=== PATIENT | male | born 1945 | race Caucasian/White ===

== ENCOUNTER 2017-07-17 09:07 | Outpatient (CLI) | payer OTHER | END 2017-07-17 09:13 | disposition home or self-care (01) | LOC: RAD 09:07 | DX: I10 Essential (primary) hypertension (principal) ==

== ENCOUNTER 2017-07-18 06:39 | Outpatient (CLI) | payer OTHER | END 2017-07-18 06:57 | disposition home or self-care (01) | LOC: LAB 06:39 | DX: N20.0 Calculus of kidney (principal) ==

== ENCOUNTER → 2017-07-25 | Day surgery (SDC) | payer OTHER ==
[~2017-07-25] MED LIST: ATORVASTATIN CA10 MG PO
== END | disposition home or self-care (01) ==
LOC: CIR.AMB 05:15
DX: N20.0 Calculus of kidney (principal)

== ENCOUNTER 2017-07-27 06:25 | Outpatient (CLI) | payer OTHER | END 2017-07-27 06:35 | disposition home or self-care (01) | LOC: LAB 06:25 | DX: D62 Acute posthemorrhagic anemia (principal) ==

== ENCOUNTER 2017-07-27 07:04 | Outpatient (CLI) | payer OTHER | END 2017-07-27 07:05 | disposition home or self-care (01) | LOC: RAD 07:04 | DX: N20.0 Calculus of kidney (principal) ==

== ENCOUNTER 2017-09-01 07:01 | Outpatient (CLI) | payer OTHER | END 2017-09-01 07:09 | disposition home or self-care (01) | LOC: RAD 07:01 | DX: N30.00 Acute cystitis without hematuria (principal) ==

== ENCOUNTER 2018-09-05 06:18 | Outpatient (CLI) | payer OTHER | END 2018-09-05 06:20 | disposition home or self-care (01) | LOC: LAB 06:18 | DX: R97.21 Rising PSA following treatment for malignant neoplasm of prostate (principal); D64.3 Other sideroblastic anemias; I10 Essential (primary) hypertension; E78.2 Mixed hyperlipidemia; N39.0 Urinary tract infection, site not specified; E11.21 Type 2 diabetes mellitus with diabetic nephropathy; E03.8 Other specified hypothyroidism; N40.1 Benign prostatic hyperplasia with lower urinary tract symptoms; N20.0 Calculus of kidney ==

== ENCOUNTER 2019-10-17 06:00 | Day surgery (SDC) | payer OTHER | END 2019-10-17 10:35 | disposition home or self-care (01) | LOC: AMB-ENDOS 06:00 → ADM 12:30 → AMB-ENDOS 12:30 | DX: D12.2 Benign neoplasm of ascending colon (principal); D12.3 Benign neoplasm of transverse colon; D12.4 Benign neoplasm of descending colon; D12.8 Benign neoplasm of rectum ==